=== PATIENT | female | born 1975 | race Hispanic/Latino ===

== ENCOUNTER 2022-02-28 05:42 | Observation (INO) | payer MEDICAID, SELFPAY ==
[2022-02-28] VITALS (14 sets, daily range): BP systolic 105–144; BP diastolic 62–95; PULSE 67–87; RESP 10–18; TEMP 36.4–37.2; O2SAT 94–100
--- NOTE | ~2022-02-28 | CT_ITS ---
EXAMINATION: CT abdomen pelvis w con DATE: 02/28/2022 06:54 INDICATION: Periumbilical pain. TECHNIQUE: Computed tomography (CT) of the abdomen and pelvis was performed with 100 mL Omnipaque-300 intravenous contrast. Automated exposure control and iterative reconstruction technique were employe d. The dose-length product was 313.22 mGy-cm. COMPARISON: None FINDINGS: Mosaic attenuation in the lower lungs likely related to expiratory phase of imaging and mild atelecta sis. Heart size is normal. No pericardial or pleural effusion. Liver, gallbladder, spleen, pancreas, bilateral adrenal glands and right kidney are normal. 2.7 cm left renal cyst. Bladder and uterus are normal. Bilateral likely tubal ligation rings and 1.1 cm right adnexal cyst. The appendix is dilated distal to 1.3 cm with minimal periappendiceal stranding consistent with likely early acute appendicit is. Bowels are otherwise unremarkable. No abscess or free intraperitoneal gas or fluid. No pathologic ally enlarged abdominal or pelvic lymphadenopathy. Bones are unremarkable. IMPRESSION: 1. Radiographically uncomplicated acute appendicitis. Dr. Ortega discussed these findings with Dr. Jones at 7:02 AM. Reviewed, dictated and finalized at location A. IMPRESSION: 1. Radiographically uncomplicated acute appendicitis. Dr. Ortega discussed th ivette findings with Dr. Jones at 7:02 AM.
[2022-02-28] MEDS: ONDANSETRON INJ 4 MG/2 ML VIAL IV PUSH ×2 (06:06→08:03)
[2022-02-28] MEDS: MORPHINE SULFATE (*CRX) 4 MG/ML INJ IV PUSH ×2 (06:07→08:02)
[2022-02-28] MEDS: LACTATED RINGERS 1,000 ML 999 ML IV CONT (06:09)
[2022-02-28 06:21] LABS: Basophils Absolute Auto 0.1 K/mm3 (0.0-0.1); Basophils Percent Auto 0.5 % (0.2-1.2); Eosinophils Absolute Auto 0.2 K/mm3 (0-0.3); Eosinophils Percent Auto 1.8 % (0-4.4); Hematocrit 37.1 % (37.0-47.0); Hemoglobin 12.2 g/dL (12.0-15.0); Immature Granulocyte Absolute 0.05 K/mm3 (0.00-0.031); Immature Granulocyte Percent A 0.4 % (0-0.5); Lymphocytes Absolute Auto 2.99 K/mm3 (0.9-3.2); Lymphocytes Percent Auto 23.9 % (18.3-44.2); Mean Corpuscular HGB Conc 32.9 g/dl (32-36); Mean Corpuscular Volume 85.1 fl (80-100); Mean Platelet Volume 11.4 fl (7.4-10.4); Monocytes Absolute Auto 0.8 K/mm3 (0.1-0.6); Monocytes Percent Auto 6.5 % (2.6-8.5); Neutrophils Absolute Auto 8.4 K/mm3 (1.3-6.7); Neutrophils Percent Auto 66.9 % (45.5-73.1); Platelet Count Result 339 k/mm3 (150-375); Red Blood Count 4.36 M/mm3 (4.2-5.4); Red Cell Distribution Width 15.1 % (11.5-14.5); White Blood Count 12.5 K/mm3 (4.5-10.0)
[2022-02-28 06:29] LABS: Appearance Urine Clear (Clear); Bilirubin Urine Negative (Negative); Color Urine Yellow (Yellow); Glucose Urine UA 2+ mg/dL (Negative); Ketones Urine Negative (Negative); Leukocyte Esterase Ur Negative LEU/UL (Negative); Nitrate Urine Negative (Negative); Protein Urine Negative (Negative); Specific Grav Ur 1.025 (1.001-1.035); Urobilinogen Urine 0.2 mg/dL (<2.0)
--- NOTE | 2022-02-28 06:29 | ED.ABDPAIN ---
HPI - Abdominal Pain General Chief Complaint: Abdominal Pain Stated Complaint: mid abd pain, N/V Time Seen by Provider: 02/28/22 05:53 History of Present Illness HPI narrative: 46-year-old female with history of high blood pressure presents with pain in her periumbilical abdomen that started around 3 this morning, associated nausea and vomiting, no diarrhea, states that she has not really had symptoms like this before. Denies any urinary complaints. Related Data Allergies Allergy/AdvReac Type Severity Reaction Status Date / Time No Known Allergies Allergy Verified 02/28/22 06:02 Course Vital Signs Vital signs: Vital Signs Temperature 97.6 F 02/28/22 05:50 Pulse Rate 74 02/28/22 05:50 Respiratory Rate 18 02/28/22 05:50 Blood Pressure 144/81 H 02/28/22 05:50 Pulse Oximetry 97 02/28/22 05:50 Oxygen Delivery Room Air 02/28/22 05:50 Temperature 97.6 F 02/28/22 05:50 Pulse Rate 75 02/28/22 07:33 Respiratory Rate 14 02/28/22 07:33 Blood Pressure 114/95 H 02/28/22 07:33 Pulse Oximetry 98 02/28/22 07:33 Oxygen Delivery Room Air 02/28/22 05:50 MDM - Abdominal Pain MDM Narrative Medical decision making narrative: Electronic medical record was reviewed. Patient presented to the ED with complaint of [abdominal pain and vomiting]. Vitals [were within acceptable limits]. Physical exam revealed [tenderness to palpation in periumbilical abdomen]. Based on the patient's history and physical exam, my differential includes but is not limited to [gastritis, gastroenteritis, cholecystitis, pancreatitis, appendicitis]. [IV access was established by nursing staff. Patient was given zofran, morphine]. CBC, BMP, lipase, LFTs, bilirubin and alk phos were obtained. Labs were pertinent for elevated white count. [Decision was made to obtain a CT-abdomen to evaluate for acute abdominal process. CT-abdomen consistent with appendicitis.] Case discussed with Dr. Murry, general surgery, who is amenable to admission. Lab Data Result diagrams: 02/28/22 06:15 02/28/22 06:15 Labs: Lab Results 02/28/22 02/28/22 02/28/22 Range/Units 06:15 06:15 06:15 WBC 12.5 H (4.5-10.0) K/mm3 RBC 4.36 (4.2-5.4) M/mm3 Hgb 12.2 (12.0-15.0) g/dL Hct 37.1 (37.0-47.0) % MCV 85.1 (80-100) fl MCH 28.0 (26-34) pg MCHC 32.9 (32-36) g/dl RDW 15.1 H (11.5-14.5) % Plt Count 339 (150-375) k/mm3 MPV 11.4 H (7.4-10.4) fl Immature Gran % (Auto) 0.4 (0-0.5) % Neut % (Auto) 66.9 (45.5-73.1) % Lymph % (Auto) 23.9 (18.3-44.2) % [place] % (Auto) 6.5 (2.6-8.5) % Eos % (Auto) 1.8 (0-4.4) % Baso % (Auto) 0.5 (0.2-1.2) % Lymph # (Auto) 2.99 (0.9-3.2) K/mm3 [place] # (Auto) 0.8 H (0.1-0.6) K/mm3 Eos # (Auto) 0.2 (0-0.3) K/mm3 Baso # (Auto) 0.1 (0.0-0.1) K/mm3 Abs Immat Gran (auto) 0.05 H (0.00-0.031) K/mm3 Absolute Neuts (auto) 8.4 H (1.3-6.7) K/mm3 Absolute Nucleated RBC 0.0 (0.0-0.012) K/mm3 Nucleated RBC % 0.0 (0.0-0.2) % PT 13.1 (11.1-14.7) Seconds INR 1.0 APTT 25.1 (22.3-36.8) SECONDS Sodium (137-145) mmol/L Potassium (3.4-5.0) mmol/L Chloride (98-107) mmol/L Carbon Dioxide (22-30) mmol/L Anion Gap (8-16) mmol/L BUN (7-17) mg/dL Creatinine (0.7-1.0) mg/dL Estim Creat Clear Calc Estimated GFR (59 - ) Glucose (65-110) mg/dL Calcium (8.4-10.2) mg/dL Total Bilirubin (0.2-1.3) mg/dL AST (14-36) U/L ALT (6-35) U/L Alkaline Phosphatase (38-126) U/L Total Protein (6.3-8.2) g/dL Albumin (3.5-5.1) g/dL Lipase (23-300) U/L Urine Color Yellow (Yellow) Urine Appearance Clear (Clear) Urine pH 6.0 (5.0-9.0) Ur Specific [place] 1.025 (1.001-1.035) Urine Protein Negative (Negative) mg/dL Urine Glucose (UA) 2+ H (Negative) mg/dL Urine Ketones Negative (Negative) mg/dL Ur
[2022-02-28 06:32] LABS: Alanine Aminotransferase 21 U/L (6-35); Albumin Level 4.4 g/dL (3.5-5.1); Alkaline Phosphatase 86 U/L (38-126); Anion Gap 10 mmol/L (8-16); Aspartate Amino Transferase 28 U/L (14-36); Bilirubin,Total 0.3 mg/dL (0.2-1.3); Blood Urea Nitrogen 12 mg/dL (7-17); Calcium 8.6 mg/dL (8.4-10.2); Carbon Dioxide 22 mmol/L (22-30); Chloride 105 mmol/L (98-107); Estimated Glomerular Filt Rate > 60; Glucose 163 mg/dL (65-110); Lipase 113 U/L (23-300); Potassium 3.6 mmol/L (3.4-5.0); Sodium 137 mmol/L (137-145)
[2022-02-28 06:36] LABS: Add Urine Microscopic? YES; Bacteria Urine Trace /hpf; Blood Urine Trace-Intact (Negative); Mucus Urine Rare /lpf; Prothrombin Time 13.1 Seconds (11.1-14.7); RBC Urine 0-2 /hpf (0-2); Squamous Epithelial Cell Urine Rare /hpf (Few); WBC Urine 0-3 /hpf
[2022-02-28 06:37] LABS: Partial Thromboplastin Time 25.1 SECONDS (22.3-36.8)
[2022-02-28] MEDS: PROMETHAZINE HCL 25 MG/ML AMPUL 12.5 MG IV PUSH (09:13)
--- NOTE | 2022-02-28 09:40 | PM.IMHP ---
H&P: HPI History of Present Illness Date/Time: 02/28/22 09:40 Chief Complaint: Periumbilical abdominal pain Narrative: This is a 46-year-old female who is primarily Luxembourgish speaking, therefore her history, exam, and discussion about plan were performed through the [employer] education site manager, Marielos #[id number]. She reportedly had an onset of periumbilical abdominal pain starting around 3:00 a.m. this morning. Reports associated vomiting, but states the vomiting was due to severe pain. Denies any fever or chills. Denies having this abdominal pain in the past. Her pain continued to worsen and she presented to the ER for evaluation. CT scan of the abdomen and pelvis showed acute uncomplicated appendicitis. Labs revealed mild leukocytosis. She was admitted to our service in this setting. She is now seen on the medical floor. No previous abdominal surgeries. Patient reports having more upper abdominal pain. She reports only vomiting when the pain gets very severe. She did have NBNB emesis after palpating her abdomen on my exam. Only previous abdominal surgery is a tubal ligation. Review of Systems Review of Systems: All systems reviewed & are unremarkable except as noted in HPI and below Constitutional: Constitutional: Reports as per HPI, Reports no additional constitutional complaints, Denies chills, Denies fatigue and Denies fever(s) Eyes: Eyes: Reports no additional eye complaints ENT: Reports system reviewed and no additional complaints, except as documented and Reports Normal hearing present Cardiovascular: Cardiovascular: Reports no additional cardiovascular complaints, Denies chest pain and Denies leg edema Respiratory: Respiratory: Reports no additional respiratory complaints, Denies cough and Denies dyspnea Gastrointestinal: Gastrointestinal: Reports as per HPI, Reports no additional gastrointestinal complaints, Reports abdominal pain, Denies melena, Denies hematochezia, Denies change in bowel habits, Denies change in stool character, Denies diarrhea, Denies nausea and Reports vomiting Genitourinary: Genitourinary: Reports no additional female genitourinary complaints and Denies dysuria Musculoskeletal: Musculoskeletal: Reports no additional musculoskeletal complaints, Denies deformity and Denies joint swelling Integumentary/Breasts: Skin/Breast: Reports system reviewed and no additional complaints, except as docu Neurologic: Reports system reviewed and no additional complaints, except as documented, Denies dizziness, Denies focal weakness, Denies numbness and Denies tingling PMFSH Past Medical History Medical History Dyslipidemia Hypertension Surgical History Surgical History History of left breast biopsy Reports biopsy x 2 and possibly lumpectomy, results of biopsy/path are uknown History of tubal ligation Family History Family History Other No pertinent family history Social History Social History Smoking status: Never smoker Alcohol intake: current Drinks per week: 1 Substance use: never Occupation/Education: occupation Additional occupation/education comments: [employer] care concerns: No Meds Home Medications and Allergies Home Medications Medication Instructions Recorded Confirmed Type amlodipine 5 mg tablet 5 mg PO DAILY 02/28/22 02/28/22 History fenofibrate 160 mg tablet 160 mg PO DAILY 02/28/22 02/28/22 History Allergies Allergy/AdvReac Type Severity Reaction Status Date / Time No Known Allergies Allergy Verified 02/28/22 10:08 Vital Signs Vital Signs - 24 hr 02/28/22 05:50 02/28/22 07:33 02/28/22 08:57 Temperature 97.6 F Pulse Rate 74 75 67 Respiratory Rate 18 14 16 Blood Pressure 144/81 H 114/95 H 114/78 Pulse Oximetry 97 98 9
--- NOTE | 2022-02-28 09:52 | ADMGEN ---
This patient, Marielos Tate, was admitted to [facility] Surg Room 328-01. Patient/family oriented to hospital policies and general routines including ID bracelet, bed and alarms, visiting hours, pain management, procedures, bathroom and other care routines, personal items, smoking policy, room service/diet, and visiting hours. Information on how to activate the Rapid Response Team has been discussed. Patient/Family are encouraged to report perceived risks to care and to ask questions if they do not understand what they are told or what they should do.
--- NOTE | 2022-02-28 11:26 | WPDANESEPPF ---
Anes - Initial Pre Proc Eval Procedure: Operation Date: 02/28/22 13:30 Proposed Procedures p Laparoscopic Appendectomy - Cole Murry MD Date/Time: 02/28/22 11:26 Surgeon: Cole Murry MD Pre Op Diagnosis: Appy Patient Data Age: 46 Gender: F Height: 1.6 m Weight: 63.3 kg Last Vital Signs Temp 36.4 C 02/28/22 05:50 Pulse 67 02/28/22 08:57 Resp 16 02/28/22 08:57 BP 114/78 02/28/22 08:57 Pulse Ox 97 02/28/22 08:57 O2 Del Method Room Air 02/28/22 05:50 Allergies Allergy/AdvReac Type Severity Reaction Status Date / Time No Known Allergies Allergy Verified 02/28/22 10:08 Home Medications Medication Instructions Recorded Confirmed Type amlodipine 5 mg tablet 5 mg PO DAILY 02/28/22 02/28/22 History fenofibrate 160 mg tablet 160 mg PO DAILY 02/28/22 02/28/22 History Laboratory Tests 02/28/22 02/28/22 02/28/22 06:15 06:15 06:15 WBC 12.5 K/mm3 H K/mm3 (4.5-10.0) RBC 4.36 M/mm3 M/mm3 (4.2-5.4) Hgb 12.2 g/dL g/dL (12.0-15.0) Hct 37.1 % % (37.0-47.0) MCV 85.1 fl fl (80-100) MCH 28.0 pg pg (26-34) MCHC 32.9 g/dl g/dl (32-36) RDW 15.1 % H % (11.5-14.5) Plt Count 339 k/mm3 k/mm3 (150-375) MPV 11.4 fl H fl (7.4-10.4) Immature Gran % (Auto) 0.4 % % (0-0.5) Neut % (Auto) 66.9 % % (45.5-73.1) Lymph % (Auto) 23.9 % % (18.3-44.2) [place] % (Auto) 6.5 % % (2.6-8.5) Eos % (Auto) 1.8 % % (0-4.4) Baso % (Auto) 0.5 % % (0.2-1.2) Lymph # (Auto) 2.99 K/mm3 K/mm3 (0.9-3.2) [place] # (Auto) 0.8 K/mm3 H K/mm3 (0.1-0.6) Eos # (Auto) 0.2 K/mm3 K/mm3 (0-0.3) Baso # (Auto) 0.1 K/mm3 K/mm3 (0.0-0.1) Abs Immat Gran (auto) 0.05 K/mm3 H K/mm3 (0.00-0.031) Absolute Neuts (auto) 8.4 K/mm3 H K/mm3 (1.3-6.7) Absolute Nucleated RBC 0.0 K/mm3 K/mm3 (0.0-0.012) Nucleated RBC % 0.0 % % (0.0-0.2) PT 13.1 Seconds Seconds (11.1-14.7) INR 1.0 APTT 25.1 SECONDS SECONDS (22.3-36.8) Sodium Potassium Chloride Carbon Dioxide Anion Gap BUN Creatinine Estim Creat Clear Calc Estimated GFR Glucose Calcium Total Bilirubin AST ALT Alkaline Phosphatase Total Protein Albumin Lipase Urine Color Yellow (Yellow) Urine Appearance Clear (Clear) Urine pH 6.0 (5.0-9.0) Ur Specific [place] 1.025 (1.001-1.035) Urine Protein Negative mg/dL mg/dL (Negative) Urine Glucose (UA) 2+ mg/dL H mg/dL (Negative) Urine Ketones Negative mg/dL mg/dL (Negative) Ur Blood (Man) Trace-intact (Negative) Urine Nitrate Negative (Negative) Urine Bilirubin Negative (Negative) Urine Urobilinogen 0.2 mg/dL mg/dL (<2.0) Leukocyte Esterase Rfl Negative RADHA/UL RADHA/UL (Negative) Urine RBC 0-2 /hpf /hpf (0-2) Urine WBC 0-3 /hpf /hpf Ur Squamous Epith Cells Rare /hpf /hpf (Few) Urine Bacteria Trace /hpf /hpf Urine Mucus Rare /lpf /lpf 02/28/22 06:15 WBC RBC Hgb Hct MCV MCH MCHC RDW Plt Count MPV Immature Gran % (Auto) Neut % (Auto) Lymph % (Auto) [place] % (Auto) Eos % (Auto) Baso % (Auto) Lymph # (Auto) [place] # (Auto) Eos # (Auto) Baso # (Auto) Abs Immat Gran (auto) Absolute Neuts (auto) Absolute Nucleated RBC Nucleated RBC % PT INR APTT S[place]
--- NOTE | 2022-02-28 12:24 | ADMGEN ---
This patient, Marielos Tate, was admitted to [facility] Surg Room 328-01. Patient/family oriented to hospital policies and general routines including ID bracelet, bed and alarms, visiting hours, pain management, procedures, bathroom and other care routines, personal items, smoking policy, room service/diet, and visiting hours. Information on how to activate the Rapid Response Team has been discussed. Patient/Family are encouraged to report perceived risks to care and to ask questions if they do not understand what they are told or what they should do.
[2022-02-28] MEDS: LACTATED RINGERS 1,000 ML 30 ML IV CONT ×2 (13:00→16:11)
--- NOTE | 2022-02-28 13:14 | WPDHPUPDATE1 ---
History and Physical Update Update Date/Time: 02/28/22 13:14 History and Physical has been reviewed, including an updated exam of the patient. There are NO changes in the patient's condition. Risks, benefits, and alternatives have been discussed and questions answered. Patient agrees to proceed with procedure.
[2022-02-28] MEDS: fentaNYL CITRATE INJ (*CRX) 100 MCG/2 ML VIAL 50 MCG IV PUSH (13:17)
[2022-02-28] MEDS: BUPIVACAINE/EPINEPHRINE 0.25% 50 ML VIAL 30 ML INFILTRATE (13:45)
--- NOTE | 2022-02-28 15:14 | W.PM.PROC2 ---
Procedure Note - Detailed Date of Procedure 02/28/22 Pre-op Diagnosis Acute uncomplicated appendicitis Post-op Diagnosis Same Procedure Performed laparoscopic appendectomy Surgeon Cole Murry MD Textile Bag Sewer Henrique HEALY. OR Civil Manager Anesthesia General Indications This patient is a pleasant 46-year-old German-speaking next [place]an female. She developed abdominal pain through the night and woke up at 3:00 a.m. this morning with mid abdominal pain nausea and vomiting. (See H and P and ER note). Thorough discussion was undertaken with regard to treatment with surgery versus antibiotics. Review her CT with the radiologist did reveal a possible appendicolith. Because of her pain and nausea the patient wanted to proceed with surgery and I thought this was a good idea. Findings Entire appendix was quite dilated to an estimated 1.3 cm except for the base and the appendix extending about 1 cm out from the base. No signs of perforation were identified. There was some mild clear yellow reactive fluid in the right colic gutter. Description of Procedure The patient was seen in her hospital Room. The risks, benefits, complications, treatment options, and expected outcomes were discussed with the patient and/or family. The possibilities of reaction to medication, pulmonary aspiration, perforation of viscus, bleeding, recurrent infection, finding a normal appendix, the need for additional procedures, and failure to diagnose a condition were discussed. Have also provided the patient with a German language patient information sheet about appendicitis and appendectomy. There was concurrence with the proposed plan and informed consent was obtained. We used the motor vehicle parts interpreter to do this. The site of surgery was properly noted did not need to be marked since it was within the abdomen. The patient was taken to Operating Room, and a time out was preformed which identified this as the proper patient, and the procedure verified as laparoscopic appendectomy, possible open. The patient was placed in the supine position and general anesthesia was induced, along with placement of an orogastric tube, SCD hose, and a Harrell catheter. The abdomen was prepped and draped in a sterile fashion. A 5 mm umbilical incision was made and the peritoneal cavity was accessed using the Veress needle technique. Once the abdomen was insufflated to 14 mmHg pressure a 5 mm XL trocar over the 0? 5 mm scope was carefully twisted into the abdomen via the umbilicus. The pneumoperitoneum was then established to steady pressure of 14 mm Hg. A 12 mm laparoscopic port was placed through a transverse suprapubic incision. An additional 5 mm cannula was then placed in the left lower quadrant of the abdomen at a level half way between the umbilicus and pubic symphysis under direct vision. A careful evaluation of the entire abdomen was carried out. I did not see any abnormalities in the upper abdomen. Stomach was still slightly dilated with care and the OG tube that had been placed prior to starting our operation was placed to suction to help evacuate this. The patient was placed in Trendelenburg and left lateral decubitus position. The small intestines were retracted in the cephalad and left lateral direction away from the pelvis and right lower quadrant. The patient was found to have an enlarged and inflamed appendix that was extending [into the right side of the pelvis. There was no evidence of perforation. The appendix was carefully dissected. Once it was free a 45 mm ethicon endogastroentestinal stapler with a vascular load was placed across the mesoappendix. This was fired and hemostasis was checked along the staple line and appeared to be adequate. I did use the right angle hook Bovie cautery to touch 1 placed along the staple line that was oozing. For this patient, this divided the entire mesoappendix and we were able to proceed immediately to stapling off the appendix at it's junction with the
[2022-02-28] MEDS: LACTATED RINGERS 1,000 ML 100 ML IV CONT (17:34)
[2022-02-28] MEDS: SENNA/DOCUSATE SODIUM TABLET 2 TAB PO (20:56)
[2022-02-28] MEDS: HYDROcodone/acetaminophen (*CRX) 5-325 MG TABLET 1 TAB PO (21:01)
[2022-03-01 03:56] VITALS: BP 101/53; PULSE 69; RESP 17; TEMP 36.6; O2SAT 97
[2022-03-01 06:27] LABS: Hematocrit 33.5 % (37.0-47.0); Hemoglobin 10.8 g/dL (12.0-15.0); Mean Corpuscular HGB Conc 32.2 g/dl (32-36); Mean Corpuscular Hemoglobin 27.7 pg (26-34); Mean Corpuscular Volume 85.9 fl (80-100); Mean Platelet Volume 11.6 fl (7.4-10.4); Platelet Count Result 295 k/mm3 (150-375); Red Cell Distribution Width 15.8 % (11.5-14.5); White Blood Count 17.9 K/mm3 (4.5-10.0)
[2022-03-01] MEDS: HYDROcodone/acetaminophen (*CRX) 7.5-325 MG TABLET 1 TAB PO (06:37)
[2022-03-01 06:40] LABS: Anion Gap 9 mmol/L (8-16); Blood Urea Nitrogen 9 mg/dL (7-17); Calcium 8.9 mg/dL (8.4-10.2); Carbon Dioxide 22 mmol/L (22-30); Chloride 107 mmol/L (98-107); Estimated CRCL calculation 84 ml/min; Estimated Glomerular Filt Rate > 60; Glucose 120 mg/dL (65-110); Potassium 3.7 mmol/L (3.4-5.0); Sodium 138 mmol/L (137-145)
[2022-03-01 08:00] VITALS: BP 110/70; PULSE 57; RESP 18; TEMP 36.2; O2SAT 99
[2022-03-01 08:55] VITALS: O2SAT 97
[2022-03-01] MEDS: ENOXAPARIN 40 MG/0.4 ML SYRINGE SUB-Q (09:31)
[2022-03-01 12:00] VITALS: BP 119/80; PULSE 74; RESP 14; TEMP 36.6; O2SAT 99
[2022-03-01 16:00] VITALS: BP 130/60; PULSE 66; RESP 18; TEMP 36.3; O2SAT 95
[2022-03-01] MEDS: HYDROcodone/acetaminophen (*CRX) 5-325 MG TABLET 1 TAB PO (16:38)
--- NOTE | 2022-03-01 17:54 | PM.DS ---
DS: Admitting Diagnosis Discharge Date 03/01/2022 Admitting Diagnosis acute uncomplicated appendicitis DS: Discharge Diagnosis Discharge Diagnosis (1) Acute appendicitis: Code(s): K35.80 - Unspecified acute appendicitis Status: Acute Assessment and Plan: This was the main reason for the patient's admission. After thorough discussion and because there was a suggestion of an appendicolith we proceeded to surgical intervention rather than IV antibiotic therapy. Patient had an uneventful laparoscopic appendectomy. There was no signs of perforation. Antibiotics were stopped after the preop dose. Patient progressed fairly readily although had significant discomfort the day following surgery. Her white count was still 19,000. she improved through the day on Friday03/01/2022 and had tolerated a full liquid diet for lunch. She was ordered a heart healthy diet for supper and did okay with that. Therefore, both after talking with her through the real estate management specialist and with her son, she determined that she would be able to go home on pain pills. She understands she should take milk a magnesia every 12 hours (until she does have a BM) if she does not have a bowel movement by tomorrow morning --- 03/02/2022. She understands that the pain pills may push her toward constipation. (2) Hypertension: Code(s): I10 - Essential (primary) hypertension Status: Acute Assessment and Plan: Patient will resume her home meds and follow up with her PCP at [facility], [place], operated by [facility] in [place], [place] (3) Dyslipidemia: Code(s): E78.5 - Hyperlipidemia, unspecified Status: Acute Assessment and Plan: resume home meds. DS: Summary Hospital Course Reason for hospitalization: Acute uncomplicated appendicitis ----Patient had an uneventful laparoscopic appendectomy. Hospital Course: Patient had an uneventful laparoscopic appendectomy. There was no signs of perforation. Antibiotics were stopped after the preop dose. Patient progressed fairly readily although had significant discomfort the day following surgery. Her white count was still 19,000. she improved through the day on Friday03/01/2022 and had tolerated a full liquid diet for lunch. She was ordered a heart healthy diet for supper and did okay with that. Therefore, both after talking with her through the real estate management specialist and with her son, she determined that she would be able to go home on pain pills. Pathology was still pending after discharge. Labs good, patient was tolerating a diet and pain was controlled oral pain medication. Status at Discharge Functional status at discharge: independent ambulation Overall status at discharge: patient is not back to baseline ( patient moving slower and taking pain meds for incisional pain.) Time Spent with Patient Time attestation: Total time spent providing and/or coordinating discharge services: Time spent: Less than 30 minutes Specific discharge activities: Time spent with family answering questions through the real estate management specialist and through her son does speak some [place]. Time spent making sure prescriptions were sent to pharmacy Time spent making sure the nurses would be able to provide the patient Argentine language instructions. Time spent provide the patient and family with a Argentine language brochure regarding appendectomy. ( from the [employer]). Exam Const: General: cooperative, alert and awake Orientation/consciousness: patient oriented x3 HENMT: Head: normal to inspection Mouth: Yes moist mucous membranes Eyes: Sclera: sclerae normal Pupils: Equal, round and reactive pupils present Neck: Neck: normal visual inspection Chest: Chest palpation & inspection: normal inspection of the chest Resp: Effort & Inspection: normal respiratory effort Auscultation: clear to auscultation bilaterally Cardio: Rate: regular rate GI: Inspection: incision ( Clean and dry w
== END 2022-03-01 18:50 | disposition home or self-care (01) ==
LOC: ANHED 07:46 → ANH3MEDSUR 08:03
PROVIDERS: Admitting Provider Surgery; Emergency Provider Emergency Medicine; PCP Registered Nurse; Visit Provider Surgery
PROC: 0DTJ4ZZ Resection of Appendix, Percutaneous Endoscopic Approach (ICD-10-PCS; CPT 44970; principal; 2022-02-28 13:30)
DX: K35.80 Unspecified acute appendicitis (principal); I10 Essential (primary) hypertension; E78.5 Hyperlipidemia, unspecified; Z72.89 Other problems related to lifestyle; D72.829 Elevated white blood cell count, unspecified; Z79.899 Other long term (current) drug therapy
CPT/HCPCS: 44970; 36415; 74177; 80048; 80053; 81001; 81025; 83690; 85025; 85027; 85610; 85730; 88304; 96361; 96372; 96374; 96375; 96376; 99285; A9270; G0378; J0330; J1100; J1650; J2250; J2270; J2405; J2550; J2704; J2710; J3010; J7030; J7120; Q9967

== ENCOUNTER 2023-03-07 22:40 | Emergency (ER) | payer MEDICAID, SELFPAY ==
[2023-03-07 22:42] VITALS: BP 148/90; PULSE 76; RESP 15; TEMP 36.6; O2SAT 100
--- NOTE | 2023-03-07 22:46 | ED.DENTAL ---
HPI - Dental/Oral General Chief complaint: Dental/Oral <Aby Rolon APRN - Last Filed: 03/08/23 00:15> Stated complaint: dental pain <ILA Gomez Last Filed: 03/08/23 00:15> Time Seen by Provider: 03/07/23 22:46 <Aby Rolon APRN - Last Filed: 03/08/23 00:15> Source: patient and family (daughter at bedside) <Aby Rolon APRN - Last Filed: 03/08/23 00:15> Mode of arrival: ambulatory <Aby Rolon APRN - Last Filed: 03/08/23 00:15> Limitations: language barrier (daughter here translating, denies wanting an parts interpreter ) <ILA Gomez Last Filed: 03/08/23 00:15> History of Present Illness HPI Narrative: Patient is a pleasant 47-year-old female with a past medical history of dyslipidemia, hypertension presents to the emergency department today with her daughter for evaluation of right-sided facial swelling/dental pain. states it is making her have a headache. Per the daughter who is here translating for patient as patient is mostly Occitan speaking states that the patient said she has been dealing with this for a while now and the dentist that she needs to have this tooth pulled. She states that she does have an appointment Friday to have the tooth pulled. Denies any fever or chills. Denies any difficulty swallowing. Denies shortness of breath or chest pain. denies nausea/vomiting. denies vision changes. denies inability to open or close jaw. <Aby Rolon APRN - Last Filed: 03/08/23 00:15> Related Data Home medications: Home Medications Medication Instructions Recorded Confirmed amlodipine 5 mg tablet 5 mg PO DAILY 02/28/22 03/25/22 fenofibrate 160 mg tablet 160 mg PO DAILY 02/28/22 03/25/22 <ILA Gomez Last Filed: 03/08/23 00:15> Allergies/adverse reactions: Allergies Allergy/AdvReac Type Severity Reaction Status Date / Time No Known Allergies Allergy Verified 03/07/23 22:44 <Aby Rolon APRN - Last Filed: 03/08/23 00:15> Review of Systems Review of Systems: CONSTITUTIONAL: Denies fever, chills, or sweats. EYES: Denies visual changes, redness, or discharge. ENT: Denies rhinorrhea, congestion. +right sided facial swelling. right upper dental pain/broken tooth. CARDIOVASCULAR: Denies chest pain, palpitations, or edema. RESPIRATORY: Denies cough or dyspnea. GASTROINTESTINAL: Denies abdominal pain, nausea, vomiting, or diarrhea. GENITOURINARY: Denies dysuria or hematuria. SKIN: Denies rash or itching. MUSCULOSKELETAL: Denies back pain, joint pain, or myalgia. NEUROLOGIC: Denies headache, numbness, or weakness. PSYCHIATRIC: Denies anxiety or depression. <Aby Rolon APRN - Last Filed: 03/08/23 00:15> All systems reviewed & are unremarkable except as noted in HPI and below <Aby Rolon APRN - Last Filed: 03/08/23 00:15> [facility] Past Medical History Medical History: Medical History Dyslipidemia Hypertension <Aby Rolon APRN - Last Filed: 03/08/23 00:15> Surgical History Surgical History: Surgical History History of laparoscopic appendectomy 02/28/2022 History of left breast biopsy Reports biopsy x 2 and possibly lumpectomy, results of biopsy/path are uknown History of tubal ligation <Aby Rolon APRN - Last Filed: 03/08/23 00:15> Family History Family History: Family History Other No pertinent family history <Aby Rolon APRN - Last Filed: 03/08/23 00:15> Social History Social History: Social History Smoking status: Never smoker Alcohol intake: current Drinks per week: 1 Substance use: never Occupation/Education: occupation Additional occupation/education comments: [employer] Gender identity (if verbalized by the pa
[2023-03-07] MEDS: AMOXICILLIN/CLAVULANATE K 875-125 MG TAB 1 TABLET PO (23:57)
[2023-03-07] MEDS: HYDROcodone/acetaminophen (*CRX) 7.5-325 MG TABLET 1 TAB PO (23:57)
[2023-03-07] MEDS: LIDOCAINE HCL 2% VISC SOLN 15 ML UDC 5 ML PO (23:58)
[2023-03-08] MEDS: KETOROLAC 30 MG/ML VIAL (*BKC) IM (00:05)
[2023-03-08 00:30] VITALS: BP 132/84; PULSE 72; RESP 15; O2SAT 98
== END 2023-03-08 00:31 | disposition home or self-care (01) ==
PROVIDERS: Emergency Provider Nurse Practitioner; PCP Internal Medicine Gastroenterology
DX: K04.7 Periapical abscess without sinus (principal); K02.9 Dental caries, unspecified; I10 Essential (primary) hypertension; E78.5 Hyperlipidemia, unspecified
CPT/HCPCS: 96372; 99283; A9270; J1885

== ENCOUNTER 2023-04-02 19:56 | Emergency (ER) | payer MEDICAID, SELFPAY ==
[2023-04-02] VITALS (13 sets, daily range): BP systolic 127–162; BP diastolic 74–93; PULSE 65–102; RESP 12–20; TEMP 36.4–36.6; O2SAT 98–100
--- NOTE | ~2023-04-02 | CT_ITS ---
EXAMINATION: CT abdomen pelvis w con DATE: 04/02/2023 22:12 INDICATION: suprapubic, RLQ and LLQ pain, vaginal bleeding TECHNIQUE: Computed tomography (CT) of the abdomen and pelvis was performed with 100 mL Omnipaque-350 intravenous contrast. Automated exposure control and iterative reconstruction technique were employe d. The dose-length product was 336.75 mGy-cm. COMPARISON: 02/28/2022. FINDINGS: Lower thorax: Asymmetric breast tissue in the left breast. Liver: Normal. Biliary/Gallbladder: Gallbladder is partially collapsed. No bile duct dilation. Pancreas: No mass or duct dilation. Spleen: Normal. Adrenals:No mass. Kidneys: Simple left upper pole cyst. No suspicious mass or obstructing stone. Mild bilateral pelviec tasis, caliectasis, and ureterectasis. GI tract: No small or large bowel dilation. Status post appendectomy Mesentery/Peritoneum: No ascites, mass, or free air. Retroperitoneum: No mass. Pelvis: Distended urinary bladder with mild wall thickening and inflammation. Normal uterus and ovari es. Bilateral tubal ligation clips. Small volume right adnexal fluid, within physiologic range. 11 mm right ovarian cyst. Soft Tissues: Soft tissues and body wall unremarkable. Bones: No acute osseous finding. IMPRESSION: Distended urinary bladder with wall thickening, as can be seen with cystitis. Mild bilateral hydronephrosis without obstructing stone, which may reflect ascending infection/urinar y retention. Asymmetric breast tissue in the left breast, correlate with physical examination and recommend diagno stic mammography and breast ultrasound for further evaluation Reviewed, dictated and finalized at location K. IMPRESSION: Distended urinary bladder with wall thickening, as can be seen with cystitis. Mild bilateral hydronephrosis without obstructing stone, which may reflect asce nding infection/urinary retention. Asymmetric breast tissue in the left breast, correlate with physical examinatio n and recommend diagnostic mammography and breast ultrasound for further evalua tion
[2023-04-02 20:16] LABS: Basophils Absolute Auto 0.1 K/mm3 (0.0-0.1); Basophils Percent Auto 0.6 % (0.2-1.2); Eosinophils Absolute Auto 0.3 K/mm3 (0-0.3); Eosinophils Percent Auto 3.3 % (0-4.4); Hematocrit 41.9 % (37.0-47.0); Hemoglobin 13.5 g/dL (12.0-15.0); Immature Granulocyte Absolute 0.03 K/mm3 (0.00-0.031); Immature Granulocyte Percent A 0.3 % (0-0.5); Lymphocytes Percent Auto 32.1 % (18.3-44.2); Mean Corpuscular HGB Conc 32.2 g/dl (32-36); Mean Corpuscular Hemoglobin 28.2 pg (26-34); Mean Corpuscular Volume 87.7 fl (80-100); Mean Platelet Volume 10.9 fl (7.4-10.4); Monocytes Absolute Auto 0.6 K/mm3 (0.1-0.6); Monocytes Percent Auto 6.3 % (2.6-8.5); Neutrophils Absolute Auto 5.7 K/mm3 (1.3-6.7); Neutrophils Percent Auto 57.4 % (45.5-73.1); Platelet Count Result 318 k/mm3 (150-375); Red Blood Count 4.78 M/mm3 (4.2-5.4); Red Cell Distribution Width 18.9 % (11.5-14.5)
[2023-04-02 20:26] LABS: Alanine Aminotransferase 18 U/L (6-35); Albumin Level 4.5 g/dL (3.5-5.1); Alkaline Phosphatase 104 U/L (38-126); Anion Gap 12 mmol/L (8-16); Aspartate Amino Transferase 23 U/L (14-36); Bilirubin,Total 0.2 mg/dL (0.2-1.3); Blood Urea Nitrogen 15 mg/dL (7-17); Calcium 9.3 mg/dL (8.4-10.2); Carbon Dioxide 21 mmol/L (22-30); Chloride 104 mmol/L (98-107); Estimated CRCL calculation 83 ml/min; Estimated Glomerular Filt Rate > 60; Glucose 155 mg/dL (65-110); Lipase 124 U/L (23-300); Potassium 4.1 mmol/L (3.4-5.0); Sodium 137 mmol/L (137-145)
--- NOTE | 2023-04-02 21:16 | ED.ABDPAIN ---
HPI - Abdominal Pain General Chief Complaint: Abdominal Pain Stated Complaint: Lower abd pain, vaginal bleeding Time Seen by Provider: 04/02/23 20:52 History of Present Illness HPI narrative: 47-year-old female G5, P5 with a history of hypertension, dyslipidemia, s/p appendectomy, tubal ligation reports for evaluation for suprapubic, left lower quadrant and right lower quadrant abdominal pain that started today. Patient states she is on day 3 of her menstrual cycle and reports heavy bleeding. She states this morning she had to change her pad 3 times within an hour, which has since subsided. She is reporting now she is not having to change her pad every hour but she is reporting worsening abdominal pain and cramping. States the pain is worse than childbirth. She reports passing a large clot this morning. States this is happened similarly in the past and she saw her SEAM RUBBER at [place] who started on a medication to help control the bleeding in December. Patient states she took medication for 3 days and then discontinued it after having nausea. Reports she has a appointment scheduled with her SEAM RUBBER within the following month. She reports taking diclofenac at 4 PM today without relief. She denies fever, body aches or chills, nausea or vomiting, chest pain or shortness of breath, syncope or lightheadedness, diarrhea, dysuria or hematuria, vaginal discharge or concern for STDs, back pain. Last bowel movement today was normal. Related Data Home Medications Medication Instructions Recorded Confirmed amlodipine 5 mg tablet 5 mg PO DAILY 02/28/22 03/25/22 fenofibrate 160 mg tablet 160 mg PO DAILY 02/28/22 03/25/22 Allergies Allergy/AdvReac Type Severity Reaction Status Date / Time No Known Allergies Allergy Verified 03/07/23 22:44 Review of Systems Review of Systems: CONSTITUTIONAL: Denies fever, chills EYES: Denies visual changes, redness, or discharge. ENT: Denies rhinorrhea, congestion, sore throat, or otalgia. CARDIOVASCULAR: Denies chest pain, palpitations, or edema. RESPIRATORY: Denies cough or dyspnea. GASTROINTESTINAL: See HPI GENITOURINARY: Denies dysuria or hematuria. SKIN: Denies rash or itching. MUSCULOSKELETAL: Denies back pain, joint pain, or myalgia. NEUROLOGIC: Denies headache, numbness, dizziness, or weakness. PSYCHIATRIC: Denies anxiety or depression. [facility] Past Medical History Medical History Dyslipidemia Hypertension Surgical History Surgical History History of laparoscopic appendectomy 02/28/2022 History of left breast biopsy Reports biopsy x 2 and possibly lumpectomy, results of biopsy/path are uknown History of tubal ligation Family History Family History Other No pertinent family history Social History Social History Smoking status: Never smoker Alcohol intake: current Drinks per week: 1 Substance use: never Occupation/Education: occupation Additional occupation/education comments: [employer] Gender identity (if verbalized by the patient): Female Sexual Orientation (if Verbalized by the Patient): Straight or Heterosexual Spiritual care concerns: No Exam Narrative: GENERAL: Patient resting in exam bed, appears uncomfortable. Nontoxic appearing. HEAD: Normocephalic EYES: PERRLA ENT: Nares clear. Mucous membranes moist. Oropharynx without tonsillar hypertrophy exudate or other lesions. NECK: Supple. CHEST: No respiratory distress. Clear to auscultation, no adventitious breath sounds. Bilateral breast without overlying skin changes, no nipple retraction, no masses or lesions palpated. No axillary, supraclavicular or infraclavicular lymphadenopathy appreciated. HEART: Regular rate and rhythm. No murmur heard. Normal periphera
[2023-04-02] MEDS: SODIUM CHLORIDE 0.9% IV 1,000 ML 999 ML IV CONT (21:44)
[2023-04-02] MEDS: KETOROLAC 30 MG/ML VIAL (*BKC) IV PUSH (21:45)
[2023-04-02 22:00] LABS: Appearance Urine Cloudy (Clear); Bacteria Urine None Seen /hpf; Bilirubin Urine Negative (Negative); Blood Urine 3+ (Negative); Color Urine Yellow (Yellow); Glucose Urine UA 3+ mg/dL (Negative); Ketones Urine Negative (Negative); Leukocyte Esterase Ur Negative LEU/UL (Negative); Nitrate Urine Negative (Negative); Non Pathogenic Casts 0-2; Protein Urine Trace mg/dL (Negative); RBC Urine >100 /hpf (0-2); Specific Grav Ur 1.021 (1.001-1.035); Squamous Epithelial Cell Urine None seen /hpf (Few); Urobilinogen Urine 0.2 mg/dL (<2.0); WBC Urine 0-5 /hpf
[2023-04-02 22:04] LABS: Partial Thromboplastin Time 30.2 SECONDS (22.3-36.8); Prothrombin Time 13.1 Seconds (11.1-14.7)
[2023-04-02 22:15] LABS: Add Urine Microscopic? YES
[2023-04-03 00:53] VITALS: BP 157/88; PULSE 79; RESP 15; TEMP 36.6; O2SAT 100
== END 2023-04-03 00:54 | disposition home or self-care (01) ==
PROVIDERS: Emergency Medicine; Emergency Provider Physician Assistant; PCP Internal Medicine Gastroenterology
DX: N93.9 Abnormal uterine and vaginal bleeding, unspecified (principal); R10.30 Lower abdominal pain, unspecified; I10 Essential (primary) hypertension; E78.5 Hyperlipidemia, unspecified
CPT/HCPCS: 36415; 74177; 80053; 81001; 81025; 83690; 85025; 85610; 85730; 96361; 96374; 99284; J1885; J7030; Q9967

== ENCOUNTER 2023-08-06 10:53 | Outpatient (CLI) | payer SELFPAY ==
--- NOTE | ~2023-08-06 | MMUS_ITS ---
EXAMINATION: MM diagnostic mary jane BI w larry, US breast LT limited HISTORY: Possible left breast mass on recent CT. Patient's clinical history is difficult to elicit ho wever there is a questionable history of excisional biopsy involving the upper outer quadrant of the left breast. TECHNIQUE: Craniocaudal, mediolateral, and mediolateral oblique 3-D tomosynthesis images of the breas ts were performed and synthetic 2-D images were generated. CAD analysis was submitted and interpreted . High resolution limited left breast ultrasound was performed. COMPARISON: No prior mammogram is currently available for comparison at this institution. FINDINGS: MAMMOGRAPHIC FINDINGS: Right breast: No suspicious mass, calcification, or architectural distortion are identified to sugges t malignancy. Left breast: There is architectural distortion in the middle third of the outer breast at the 3:00 lo cation, 5 cm from the nipple. No discrete mass or suspicious calcification are identified. ULTRASOUND: There is a possible 2.1 x 1.5 cm irregular hypoechoic mass with posterior acoustic shadowing and no i nternal vascularity at the 1:00 location, 5 cm from the nipple in the breast. IMPRESSION: 1. Left breast findings which could relate to excisional biopsy however no prior mammograms are curre ntly available for comparison. Comparison with prior mammograms is necessary. BI-RADS Category 0: Incomplete: Needs comparison with prior mammograms. Reviewed, dictated and finalized at location A. L RESEARCH ANALYST IMPRESSION: 1. Left breast findings which could relate to excisional biopsy however no prio r mammograms are currently available for comparison. Comparison with prior mamm ograms is necessary. BI-RADS Category 0: Incomplete: Needs comparison with prior mammograms.
== END 2023-08-06 10:54 | disposition home or self-care (01) ==
PROVIDERS: PCP Internal Medicine Gastroenterology; Visit Provider Physician Assistant
DX: R92.8 Other abnormal and inconclusive findings on diagnostic imaging of breast (principal)
CPT/HCPCS: 76642; 77062; 77066; G0279